=== PATIENT | female | born 1990 | race Caucasian/White ===

== ENCOUNTER 2016-11-05 18:56 | Emergency (ER) | payer SELFPAY ==
[2016-11-05 19:03] VITALS: BP 91/56; PULSE 97; TEMP 98.6; BMI 26.0
--- NOTE | 2016-11-05 19:05 | PDOC ---
Rapid Medical Evaluation Chief Complaint: Pain, Acute Time Seen by Provider: 11/05/16 19:03 Medical Evaluation: Allergies Allergy/AdvReac Type Severity Reaction Status Date / Time No Known Allergies Allergy Verified 11/05/16 19:02 11/05/16 19:03 26 year old female with no medical history who presents complaining of one week of non-traumatic right calf and thigh pain and swelling. No chest pain or SOB. Occasional smoker. No OCP. No known family/personal history of hypercoaguability. V/s notable for HR 99. -Duplex vascular u/s to r/o DVT -Basic labs -Urine -To Main ED for further evaluation
--- NOTE | 2016-11-05 21:10 | PDOC ---
History of Present Illness - General Chief Complaint: Pain, Acute Stated Complaint: LEG PAIN Time Seen by Provider: 11/05/16 19:03 History Source: Patient - History of Present Illness Occurred: reports: other (1 week) Lower Extremity Pain Location: bilateral: leg Past History - Past Medical History Allergies/Adverse Reactions: Allergies Allergy/AdvReac Type Severity Reaction Status Date / Time No Known Allergies Allergy Verified 11/05/16 19:02 Home Medications: Ambulatory Orders Vitamins (Sjr) - 1 tab PO DAILY #1 tablet 02/06/13 Oxycodone HCl/Acetaminophen [Percocet 5-325 mg Tablet -] 1 tab PO Q4H #30 tablet MDD 6 04/24/16 Anemia: No Asthma: No Cancer: No Cardiac Disorders: No CVA: No COPD: No CHF: No Diabetes: No GI Disorders: No Disorders: No HTN: No Hypercholesterolemia: No Liver Disease: No Seizures: No Thyroid Disease: No - Reproductive History (#): 2 Para: 1 - Immunization History Immunization Up to Date: Yes - Psycho/Social/Smoking Cessation Hx Anxiety: No Suicidal Ideation: No Smoking Status: No Smoking History: Never smoked Have you smoked in the past 12 months: No Number of Cigarettes Smoked Daily: 0 Hx Alcohol Use: No Drug/Substance Use Hx: No Substance Use Type: None Hx Substance Use Treatment: No Review of Systems - Review of Systems Constitutional: No: Chills, Fever Respiratory: No: Shortness of Breath Cardiac (ROS): No: Chest Pain, Palpitations *Physical Exam - Vital Signs Last Vital Signs Temp Pulse Resp BP Pulse Ox 98.6 F 97 H 18 91/56 99 11/05/16 19:02 11/05/16 19:02 11/05/16 19:02 11/05/16 19:02 11/05/16 19:02 - Physical Exam General Appearance: Yes: Appropriately Dressed. No: Apparent Distress HEENT: positive: Normal Voice Neck: positive: Supple Respiratory/Chest: negative: Respiratory Distress Extremity: positive: Swelling (minimal swelling to R leg diffusely compared to L , no significant tenderness, no erythema or increased warmth) Integumentary: positive: Dry, Warm Neurologic: positive: Fully Oriented, Alert, Normal Mood/Affect ED Treatment Course - ADDITIONAL ORDERS Additional order review: Laboratory Results 11/05/16 19:20 Urine HCG, Qual Negative - RADIOLOGY Radiology Studies Ordered: Category Date Time Status DUPLEX VASCUL US-2LEGS [US] Stat Ultrasound 11/05/16 21:05 Ordered Medical Decision Making - Medical Decision Making 11/05/16 21:06 26-year-old female, s/p NVSD approximately 6 months ago, here with bilateral lower extremity pain and swelling, R>>L 1 week. States pain in right calf is now radiating up to thigh. No chest pain, shortness of breath or palpitations. Denies any fever or chills. States she had similar symptoms while she was . Denies any trauma. See exam B/l calf pain/swelling Will doppler given recent No CP/sob/palp to suggest PE at this time No signs of infection -Upreg neg at triage -pain control (not nursing) -US 11/05/16 21:53 DVT studies neg. DC w/ pmd f/u in 1 week to rpt DVT studies and to further evaluate 11/05/16 21:54 *DC/Admit/Observation/Transfer Diagnosis at time of Disposition: Leg swelling - Discharge Dispostion Disposition: HOME Condition at time of disposition: Good - Referrals Referrals: Mannie Carias MD [Primary Care Provider] - - Patient Instructions Additional Instructions: The cause of your symptoms are not clear at this time. However, there is no evidence of blood clot under ultrasound. Please follow-up with your PMD in 1 week to repeat DVT studies and for further evaluation
== END 2016-11-05 22:02 | disposition home or self-care (01) ==
LOC: JERFT 18:56
DX: M79.89 Other specified soft tissue disorders (principal)
CPT/HCPCS: 84703; 93970-TC; 99281-25

== ENCOUNTER 2017-10-07 18:15 | Emergency (ER) | payer OTHER ==
[2017-10-07 18:23] VITALS: BP 117/69; PULSE 89; TEMP 98; BMI 23.2
--- NOTE | 2017-10-07 18:23 | PDOC ---
Rapid Medical Evaluation Chief Complaint: Headache Time Seen by Provider: 10/07/17 18:20 Medical Evaluation: Allergies Allergy/AdvReac Type Severity Reaction Status Date / Time No Known Allergies Allergy Verified 10/07/17 18:18 10/07/17 18:21 I have performed a brief in-person evaluation of this patient. The patient presents with a chief complaint of: intermittent frontal ALMANZAR radiating to occiput Pertinent physical exam findings: No focal deficits. I have ordered the following: urine The patient will proceed to the ED for further evaluation. Discharge Disposition - Diagnosis Headache - Referrals - Patient Instructions - Post Discharge Activity
[2017-10-07 19:20] LABS: HCG,QUALITATIVE URINE NEGATIVE
[2017-10-07] MEDS ORDERED: MECLIZINE HCL 25 MG TABLET (FP) PO ONE (19:21)
[2017-10-07] MEDS ORDERED: ONDANSETRON 4 MG/2 ML VIAL IVPUSH ONE (19:21)
[2017-10-07] MEDS ORDERED: SODIUM CHLORIDE 1,000 ML IV STA (19:21)
[2017-10-07] MEDS ORDERED: KETOROLAC TROMETHAMINE 30 MG/1 ML VIAL IVPUSH ONE (19:22)
[2017-10-07 19:27] LABS: URINE APPEARANCE TURBID; URINE BILIRUBIN NEGATIVE (<2.0 mg/dL); URINE COLOR RED; URINE GLUCOSE (UA) 1+ (NEGATIVE); URINE KETONE NEGATIVE (NEGATIVE); URINE LEUK ESTERASE NEGATIVE (NEGATIVE); URINE NITRITE NEGATIVE (NEGATIVE); URINE PROTEIN 2+ (NEGATIVE); URINE UROBILINOGEN NEGATIVE mg/dL (0.2-1.0)
--- NOTE | 2017-10-07 19:30 | PDOC ---
History of Present Illness <Kim Means - Last Filed: 10/07/17 22:51> - History of Present Illness Initial Comments: 10/07/17 19:23 27 yo F with no significant pmh who p/w ALMANZAR and spinning sensation. Patient reports worsening "spinning sensation." states that room is spinning at rest and worse with movement. Symptoms occurring randomly through the day. Also reports pressure type, holocranial distribution ALMANZAR, with retorbital pain, and nausea w/out vomiting x 2 days. + Photophobia, and phonophobia. Denies aura, scintillating scotomas, but reports blurry vision x 1 day. ALMANZAR x 4 months, and worsening. Also endorses acute decreased sensation to cold water and tingling in cervical neck and one episode of dizziness with fall this AM. Denies head/ neck/back trauma. Pain not improved with Tylenol and Ibruprofen. Denies F/C, N/V, tinnitus, hearing loss, CP, SOB, abdominal pain, diarrhea, constipation, urinary complaints, weakness, lightheadedness, sensory changes PMHx: as noted above. Does not f/w Neuro. PMD. Dr. Mannie Johansen. ROS: as noted above SHx: Denies Etoh, tobacco, or IVDA. 1 cup of coffee/day. Denies OCP use. <Vicente Day - Last Filed: 10/07/17 22:53> - General Chief Complaint: Headache Stated Complaint: HEADACHE Time Seen by Provider: 10/07/17 18:20 Past History <Kim Means - Last Filed: 10/07/17 22:51> - Past Medical History Anemia: No Asthma: No Cancer: No Cardiac Disorders: No CVA: No COPD: No CHF: No DVT: No Diabetes: No GI Disorders: No Disorders: No HTN: No Hypercholesterolemia: No Liver Disease: No Seizures: No Thyroid Disease: No - Reproductive History (#): 2 Para: 1 - Immunization History Immunization Up to Date: Yes - Suicide/Smoking/Psychosocial Hx Smoking Status: No Smoking History: Never smoked Have you smoked in the past 12 months: No Number of Cigarettes Smoked Daily: 0 Information on smoking cessation initiated: No Hx Alcohol Use: No Drug/Substance Use Hx: No Substance Use Type: None Hx Substance Use Treatment: No <Vicente Day - Last Filed: 10/07/17 22:53> - Past Medical History Allergies/Adverse Reactions: Allergies Allergy/AdvReac Type Severity Reaction Status Date / Time No Known Allergies Allergy Verified 10/07/17 18:18 Home Medications: Ambulatory Orders Meclizine HCl [Antivert -] 25 mg PO TID PRN #90 tablet MDD 3 tab 10/07/17 Review of Systems - Review of Systems Comments:: 10/07/17 19:30 GENERAL/CONSTITUTIONAL: No fever or chills. No weakness. HEAD, EYES, EARS, NOSE AND THROAT: No change in vision. No ear pain or discharge. No sore throat. CARDIOVASCULAR: No chest pain or shortness of breath RESPIRATORY: No cough, wheezing, or hemoptysis. GASTROINTESTINAL: + nausea,w/out vomiting.No diarrhea or constipation. GENITOURINARY: No dysuria, frequency, or change in urination. MUSCULOSKELETAL: No joint or muscle swelling or pain. No neck or back pain. SKIN: No rash NEUROLOGIC: +headache,and vertigo. No loss of consciousness, or change in strength/sensation. ENDOCRINE: No increased thirst. No abnormal weight change HEMATOLOGIC/LYMPHATIC: No anemia, easy bleeding, or history of blood clots. ALLERGIC/IMMUNOLOGIC: No hives or skin allergy. <Vicente Day - Last Filed: 10/07/17 22:53> *Physical Exam - Vital Signs Last Vital Signs Temp Pulse Resp BP Pulse Ox 98.0 F 89 18 117/69 100 10/07/17 18:19 10/07/17 18:19 10/07/17 18:19 10/07/17 18:19 10/07/17 18:19 <Kim Means - Last Filed: 10/07/17 22:51> - Vital Signs Last Vital Signs Temp Pulse Resp BP Pulse Ox 98.0 F 89 18 117/69 100 10/07/17 18:19 10/07/17 18:19 10/07/17 18:19 10/07/17 18:19 10/07/17 18:19 - Physical Exam Comments: 10/07/17 19:34 GENERAL: Awake, alert, and fully oriented, in no acute distress HEAD: No signs of trauma, normocephalic, atraumatic EYES: PERRLA, EOMI, sclera anicteric, conjunctiva clear ENT: Auricles normal inspection, hearing grossly normal, nares patent, oropharynx clear without exudates. Moist mucosa NECK: Normal ROM, supple, no lymphadenopathy, JVD, or masses LUNGS: No distress, speaks full sentences, clear to auscultation bilaterally HEART: Regular rate and rhythm, normal S1 and S2, no murmurs, rubs or gallops, peripheral pulses normal and equal bilaterally. EXTREMITIES : Normal inspection, Normal range of motion, no edema. No clubbing or cyanosis. NEUROLOGICAL: Absent nystagmus. Cranial nerves II through XII grossly intact. Normal speech, normal gait, no focal sensorimotor deficits SKIN: Warm, Dry, normal turgor, no rashes or lesions noted <Vicente Day - Last Filed: 10/07/17 22:53> ED Treatment Course - LABORATORY CBC & Chemistry Diagram: 10/07/17 19:21 10/07/17 19:21 - ADDITIONAL ORDERS Additional order review: Laboratory Results 10/07/17 10/07/17 19:21 18:55 Sodium 141 Potassium 4.1 Chloride 108 H Carbon Dioxide 29 Anion Gap 4 L BUN 7 Creatinine 1.1 H Creat Clearance w eGFR 59.14 Random Glucose 91 Calcium 8.9 Total Bilirubin 0.3 AST 15 ALT 20 Alkaline Phosphatase 77 Total Protein 7.7 Albumin 4.1 Urine Color Red Urine Appearance Turbid Urine pH 6.0 Ur Specific [place] 1.027 Urine Protein 2+ H Urine Glucose (UA) 1+ H Urine Ketones Negative Urine Blood 3+ H Urine Nitrite Negative Urine Bilirubin Negative Urine Urobilinogen Negative Ur Leukocyte Esterase Negative Urine WBC (Auto) No Result Required. Urine RBC (Auto) >100 Urine HCG, Qual Negative 10/07/17 19:21 RBC 4.74 MCV 80.6 MCHC 33.8 RDW 16.3 H D MPV 8.4 Neutrophils % 47.8 D Lymphocytes % 43.3 H D Monocytes % 7.0 Eosinophils % 1.3 Basophils % 0.6 - Medications Given in the ED: ED Medications Discontinued Medications Generic Name Dose Route Start Last Admin Trade Name Freq PRN Reason Stop Dose Admin Sodium Chloride 1,000 mls @ 1,000 mls/hr 10/07/17 19:21 10/07/17 19:52 Normal Saline - IV 10/07/17 20:20 1,000 mls/hr ASDIR STA Administration Ketorolac Tromethamine 30 mg 10/07/17 19:22 10/07/17 19:52 Toradol Injection - IVPUSH 10/07/17 19:23 30 mg ONCE ONE Administration Meclizine HCl 25 mg 10/07/17 19:21 10/07/17 19:52 Antivert - PO 10/07/17 19:22 25 mg ONCE ONE Administration Ondansetron HCl 4 mg 10/07/17 19:21 10/07/17 19:52 Zofran Injection IVPUSH 10/07/17 19:22 4 mg ONCE ONE Administration <Kim Means - Last Filed: 10/07/17 22:51> - LABORATORY CBC & Chemistry Diagram: 10/07/17 19:21 10/07/17 19:21 - ADDITIONAL ORDERS Additional order review: Laboratory Results 10/07/17 18:55 Urine HCG, Qual Negative <Vicente Day - Last Filed: 10/07/17 22:53> Medical Decision Making - Medical Decision Making 10/07/17 21:04 27 yo F with no significant pmh who p/w holocranial tension type ALMANZAR, with retrobulbar radiation, and vertiginous complaint. VSS, A&Ox3. No focal neuro deficits or risk factors for CVA/TIA. Although patient reports vertigo at rest, there is positional component, absent neuro findings to suggest central etiology. Possible BPPV. ALMANZAR consistent with tension type ALMANZAR vs. migraine w/out aura vs. ophthalmic migraine. Will assess for underlying electrolyte abnml, toxic or metabolic derangements, acid-base disturbances. PMD. Dr. Mannie Carias ED Course: CBC,CMP, HCG UA, U Preg 10/07/17 21:10 CBC,CMP: Unremarkable HCG: Neg UA: 100+ RBC. Patient currently menstruating. 10/07/17 21:27 Patient ALMANZAR and vertigo improved. Meclizine sent to pharmacy. Patient stable for d/c with return precautions. Advised to f/u with ENT and PMD. 10/07/17 22:[address] pending. 10/07/17 22:53 CT Head unremarkable with absent intracranial pathology. <Vicente Day - Last Filed: 10/07/17 22:53> *DC/Admit/Observation/Transfer <Kim Means - Last Filed: 10/07/17 22:51> - Discharge Dispostion Decision to Admit order: No - Attestations Physician Attestion: 10/07/17 21:30 I attest to the information provided in this note. <Vicente Day - Last Filed: 10/07/17 22:53> Diagnosis at time of Disposition: Headache, Vertigo - Discharge Dispostion Disposition: HOME - Prescriptions Prescriptions: Meclizine HCl [Antivert -] 25 mg PO TID PRN #90 tablet MDD 3 tab PRN Reason: Vertigo - Referrals Referrals: John Sawant MD [Staff Physician] - - Patient Instructions Printed Discharge Instructions: DI for Vertigo Additional Instructions: Please return to the emergency department with any new or worsening symptoms or concerns. Please follow up with your primary care physician within 72 hours. Please follow up with ear,nose,throat doctor within 1 week. Please take Meclizine as needed up to three times per day.
[2017-10-07] MEDS ORDERED: KETOROLAC TROMETHAMINE 30 MG/1 ML VIAL ONE (19:40)
[2017-10-07] MEDS ORDERED: MECLIZINE HCL 25 MG TABLET (FP) ONE (19:40)
[2017-10-07] MEDS ORDERED: ONDANSETRON 4 MG/2 ML VIAL ONE (19:40)
[2017-10-07 19:53] LABS: BASO % 0.6 % (0-2.0); EOS % 1.3 % (0-4.5); HEMATOCRIT 38.2 % (32.4-45.2); HEMOGLOBIN 12.9 GM/dL (10.7-15.3); LYMPH % 43.3 % (8-40); MCH 27.3 pg (25.7-33.7); MCHC 33.8 g/dl (32.0-36.0); MEAN CELL VOLUME 80.6 fl (80-96); MEAN PLT VOLUME 8.4 fl (7.5-11.1); NEUT % 47.8 % (42.8-82.8); PLATELET COUNT 263 K/MM3 (134-434); RBC 4.74 M/mm3 (3.60-5.2); RDW 16.3 % (11.6-15.6); WHITE BLOOD COUNT 5.6 K/mm3 (4.0-10.0)
[2017-10-07 20:24] LABS: ALBUMIN 4.1 g/dl (3.4-5.0); ANION GAP 4 (8-16); BILIRUBIN,TOTAL 0.3 mg/dL (0.2-1.0); BLOOD UREA NITROGEN 7 mg/dL (7-18); CALCIUM 8.9 mg/dL (8.5-10.1); CHLORIDE 108 mmol/L (98-107); CO2 29 mmol/L (21-32); CREATININE 1.1 mg/dL (0.55-1.02); GLUCOSE,RANDOM 91 mg/dL (74-106); POTASSIUM 4.1 mmol/L (3.5-5.1); SGOT/AST 15 U/L (15-37); SGPT/ALT 20 U/L (12-78); SODIUM 141 mmol/L (136-145); TOT PROT 7.7 g/dl (6.4-8.2)
[2017-10-07 20:25] LABS: ALK PHOS 77 U/L (45-117)
--- NOTE | 2017-10-07 21:44 | PDOC ---
Attending Attestation - HPI HPI: 10/07/17 21:51 The patient is a 27 year old female with no significant past medical history presents to the emergency department with headache and vertigo. The patient reports vertigo sensation for the past 1 month, which at first was worse with movement but has progressed to spinning sensation even at rest. The patient reports intermittent headaches for the past 4 months. The patient reports new onset of symptoms of blurred vision, nausea, decreased sensation to cold, dizziness and cervical numbness. The patient reports taking Tylenol and Ibuprofen with no relief. The patient reports she is currently menstruating. Patient denies fever, chills, cough. Patient denies chest pain, diaphoresis, palpitations, and shortness of breath. Patient denies vomiting, diarrhea, and constipation. Patient denies dysuria, frequency, urgency, and hematuria. Allergies: NKDA PCP: Dr. Mannie Carias MD Social history: None reported. - Physicial Exam PE: 10/07/17 21:51 GENERAL: AAOX3 Well-appearing, well-nourished. No apparent distress. HEENT: Normocephalic, atraumatic. PERRL, EOM intact. CARDIOVASCULAR: Normal S1, S2. Regular rate and rhythm. PULMONARY: Clear to auscultation bilaterally. ABDOMEN: Soft, non-distended, non-tender. EXTREMITIES: Normal ROM in all four extremities. No gross deformities. SKIN: Warm, dry. No rash NEUROLOGICAL: no motor deficit. No focal neurological deficits. <Christal Conrad - Last Filed: 10/07/17 21:51> - Resident Resident Name: Vicente Day - ED Attending Attestation I have performed the following: I have examined & evaluated the patient, The case was reviewed & discussed with the resident, I agree w/resident's findings & plan, Exceptions are as noted - Medical Decision Making 10/07/17 22:48 27-year-old non female who presents with headache, vertigo. No gross focal neural deficits on exam. CAT scan of the head without contrast is a normal CT of the head with no evidence of acute intracranial pathology plan discharge home <Kim Means - Last Filed: 10/07/17 22:49>
== END 2017-10-07 23:11 | disposition home or self-care (01) ==
LOC: JER 18:15
PROC: 3E0333Z Introduction of Anti-inflammatory into Peripheral Vein, Percutaneous Approach (ICD-10-PCS; principal; 2017-10-07)
PROC: 3E033GC Introduction of Other Therapeutic Substance into Peripheral Vein, Percutaneous Approach (ICD-10-PCS; 2017-10-07)
DX: R51 Headache (principal); R42 Dizziness and giddiness
CPT/HCPCS: 36415; 70450-TC; 80053; 81003; 81015; 84703; 85025; 96374; 96375; 99282-25; J7030

== ENCOUNTER 2017-12-29 13:18 | Emergency (ER) | payer OTHER ==
[2017-12-29 13:25] VITALS: BP 116/64; PULSE 93; TEMP 98.7; BMI 22.6
[2017-12-29] MEDS ORDERED: IBUPROFEN 400 MG TABLET (FP) PO ONE ×2 (13:56→13:58)
--- NOTE | 2017-12-29 14:00 | PDOC ---
History of Present Illness - General Chief Complaint: Pain Stated Complaint: RIGHT ARM PAIN Time Seen by Provider: 12/29/17 13:45 History Source: Patient - History of Present Illness Occurred: reports: just prior to arrival Upper Extremity Pain Location: right: elbow Past History - Past Medical History Allergies/Adverse Reactions: Allergies Allergy/AdvReac Type Severity Reaction Status Date / Time No Known Allergies Allergy Verified 12/29/17 13:25 Home Medications: Ambulatory Orders NK [No Known Home Medication] 12/29/17 Anemia: No Asthma: No Cancer: No Cardiac Disorders: No CVA: No COPD: No CHF: No DVT: No Diabetes: No GI Disorders: No Disorders: No HTN: No Hypercholesterolemia: No Liver Disease: No Seizures: No Thyroid Disease: No - Reproductive History (#): 2 Para: 1 - Immunization History Immunization Up to Date: Yes - Suicide/Smoking/Psychosocial Hx Smoking Status: No Smoking History: Never smoked Have you smoked in the past 12 months: No Number of Cigarettes Smoked Daily: 0 Hx Alcohol Use: No Drug/Substance Use Hx: No Substance Use Type: None Hx Substance Use Treatment: No Review of Systems - Review of Systems Constitutional: No: Chills, Fever Musculoskeletal: Yes: Joint Pain. No: Joint Swelling Integumentary: Yes: Bruising *Physical Exam - Vital Signs Last Vital Signs Temp Pulse Resp BP Pulse Ox 98.7 F 93 H 18 116/64 99 12/29/17 13:22 12/29/17 13:22 12/29/17 13:22 12/29/17 13:22 12/29/17 13:22 - Physical Exam General Appearance: Yes: Appropriately Dressed. No: Apparent Distress HEENT: positive: Normal Voice Neck: positive: Supple Respiratory/Chest: negative: Respiratory Distress Musculoskeletal: positive: Other (contusion to lateral aspect of R elbow, no joint swelling, FROMI) Integumentary: positive: Dry, Warm Neurologic: positive: Fully Oriented, Alert, Normal Mood/Affect Medical Decision Making - Medical Decision Making 12/29/17 13:57 27-year-old female, no significant history, here with bruising to right elbow. Patient states this a.m. while looking for her daughter's toy under the bed she leaned "hard" on her right elbow and has had some pain and bruising since. No fall. Did not take anything for pain for unclear reasons. Patient well- appearing and stable with small area of contusion to lateral aspect of right elbow. No joint swelling, deformity, with full range of motion intact. Will dc with [id number] pain control as needed. *DC/Admit/Observation/Transfer Diagnosis at time of Disposition: Elbow contusion Qualifiers: Encounter type: initial encounter Laterality: right Qualified Code(s): S50.01XA - Contusion of right elbow, initial encounter - Discharge Dispostion Disposition: HOME Condition at time of disposition: Good - Referrals - Patient Instructions Printed Discharge Instructions: Contusion Additional Instructions: You most likely suffered a skin bruise. This will heal on its own in several days. If needed, take Motrin or Tylenol and apply ice to area - Post Discharge Activity
== END 2017-12-29 14:04 | disposition home or self-care (01) ==
LOC: JERFT 13:18
DX: S50.01XA Contusion of right elbow, initial encounter (principal)
CPT/HCPCS: 99281-25

== ENCOUNTER 2018-07-02 18:00 | Emergency (ER) | payer OTHER ==
[2018-07-02 18:28] VITALS: BP 102/47; PULSE 71; TEMP 98.3; BMI 22.6
--- NOTE | 2018-07-02 18:30 | PDOC ---
Rapid Medical Evaluation Chief Complaint: Back Pain Time Seen by Provider: 07/02/18 18:27 Medical Evaluation: Allergies Allergy/AdvReac Type Severity Reaction Status Date / Time No Known Allergies Allergy Verified 07/02/18 18:25 07/02/18 18:27 I have performed a brief in-person evaluation of this patient. The patient presents with a chief complaint of: Intermittent upper and lower back pain x 4 month, getting worse now, not taking any meds or f/u with her PMD Pertinent physical exam findings:unremarkable, NAD I have ordered the following:nothing The patient will proceed to the ED for further evaluation. Discharge Disposition - Diagnosis Back pain Qualifiers: Back pain location: back pain in unspecified location Chronicity: unspecified Back pain laterality: unspecified Qualified Code(s): M54.9 - Dorsalgia, unspecified - Referrals - Patient Instructions - Post Discharge Activity
--- NOTE | 2018-07-02 19:15 | PDOC ---
History of Present Illness - General Chief Complaint: Back Pain Stated Complaint: BACK PAIN Time Seen by Provider: 07/02/18 18:27 History Source: Patient Exam Limitations: Clinical Condition - History of Present Illness Initial Comments: 07/02/18 19:09 Patient with no significant past medical history present with complaining of 4 months history of tightness and aching pain from back of neck to lower back. Patient reports using topical patch to help with pain but has not improved. Patient reports increased pain with movement when getting up from laying position or sitting position. Patient denies any trauma or injury to lower back. Patient also reported numbness in her menstrual period with LMP May 23. Denies nausea, vomiting or vaginal bleeding. Denies abdominal pain Timing/Duration: other (4 months) Past History - Past Medical History Allergies/Adverse Reactions: Allergies Allergy/AdvReac Type Severity Reaction Status Date / Time No Known Allergies Allergy Verified 07/02/18 18:25 Home Medications: Ambulatory Orders Methocarbamol [Robaxin -] 500 mg PO BID PRN #14 tablet 07/02/18 Naproxen 500 mg PO BID PRN #20 tablet 07/02/18 Anemia: No Asthma: No Cancer: No Cardiac Disorders: No CVA: No COPD: No CHF: No DVT: No Diabetes: No GI Disorders: No Disorders: No HTN: No Hypercholesterolemia: No Liver Disease: No Seizures: No Thyroid Disease: No - Reproductive History (#): 2 Para: 1 - Immunization History Immunization Up to Date: Yes - Suicide/Smoking/Psychosocial Hx Smoking Status: No Smoking History: Never smoked Have you smoked in the past 12 months: No Number of Cigarettes Smoked Daily: 0 Hx Alcohol Use: No Drug/Substance Use Hx: No Substance Use Type: None Hx Substance Use Treatment: No Review of Systems - Review of Systems Able to Perform ROS?: Yes Is the patient limited Faroese proficient: No Constitutional: No: Weakness HEENTM: No: Recent change in vision, Double Vision Respiratory: No: Symptoms reported Cardiac (ROS): No: Symptoms Reported ABD/GI: No: Diarrhea, Nausea, Vomiting, Abdominal cramping : No: Frequency, Hematuria, Pain, Urgency Musculoskeletal: Yes: See HPI, Back Pain (b/l lower back), Muscle Pain (from b/ l sides of back of neck to lower back), Neck Pain (back of neck aching pain). No: Joint Stiffness Neurological: No: Headache, Numbness, Paresthesia, Weakness, Dizziness All Other Systems: Reviewed and Negative *Physical Exam - Vital Signs Last Vital Signs Temp Pulse Resp BP Pulse Ox 98.3 F 71 18 102/47 L 99 07/02/18 18:26 07/02/18 18:26 07/02/18 18:26 07/02/18 18:26 07/02/18 18:26 - Physical Exam Comments: 07/02/18 19:12 GENERAL: Well developed, well nourished. Awake and alert. No acute distress. CARDIOVASCULAR: Regular rate and rhythm. No murmurs, rubs, or gallops. PULMONARY: No evidence of respiratory distress. Lungs clear to auscultation bilaterally. No wheezing, rales or rhonchi. ABDOMINAL: Soft. Non-tender. Non-distended. No rebound or guarding. No organomegaly. Normoactive bowel sounds MUSCULOSKELETAL : mild tenderness over posterior paravertebral muscle from cervical spine or C2 down to lumbar spine L5 on bilateral sides. Free range of motion of neck and lower back. No bony deformities .negative straight leg raise test. SKIN: Warm and dry. Normal capillary refill. No rashes. NEUROLOGICAL: Alert, awake, appropriate. No motor deficits in the lower extremities. Gait is normal without ataxia. PSYCHIATRIC: Cooperative. Good eye contact. Appropriate mood and affect. General Appearance: Yes: Nourished, Appropriately Dressed. No: Apparent Distress Moderate Sedation - Procedure Monitoring Vital Signs: Procedure Monitoring Vital Signs Temperature 98.3 F 07/02/18 18:26 Pulse Rate 71 07/02/18 18:26 Respiratory Rate 18 07/02/18 18:26 Blood Pressure 102/47 L 07/02/18 18:26 O2 Sat by Pulse Oximetry (%) 99 07/02/18 18:26 Medical Decision Making - Medical Decision Making 07/02/18 19:15 Patient with no significant past medical history present with complaining of 4 months history of tightness and aching pain from back of neck to lower back. Patient reports using topical patch to help with pain but has not improved. Patient reports increased pain with movement when getting up from laying position or sitting position. Patient denies any trauma or injury to lower back. Patient also reported numbness in her menstrual period with LMP May 23. Denies nausea, vomiting or vaginal bleeding. Denies abdominal pain. Exam significant for mild tenderness over posterior paravertebral muscle from cervical spine or C2 down to lumbar spine L5 on bilateral sides. Free range of motion of neck and lower back. No bony deformities .negative straight leg raise test. Symptoms likely muscle spasm of the neck and back. Urine test ordered. Patient will be treated based on test result 07/02/18 19:33 Urine test negative. Patient is stable for discharge on NSAIDs and muscle relaxer with orthopedist follow-up as needed. Patient advised to follow up with SCIENTIFIC SOFTWARE ENGINEER to evaluate for late menstrual period. *DC/Admit/Observation/Transfer Diagnosis at time of Disposition: test negative, Back muscle spasm Back pain Qualifiers: Back pain location: back pain in unspecified location Chronicity: unspecified Back pain laterality: unspecified Qualified Code(s): M54.9 - Dorsalgia, unspecified - Discharge Dispostion Disposition: HOME Condition at time of disposition: Stable Decision to Admit order: No - Prescriptions Prescriptions: Methocarbamol [Robaxin -] 500 mg PO BID PRN #14 tablet PRN Reason: Back Pain Naproxen 500 mg PO BID PRN #20 tablet PRN Reason: Back Pain - Referrals Referrals: Darrion Cline DO [Staff Physician] - - Patient Instructions Printed Discharge Instructions: DI for Low Back Pain, Exercise May Reduce Risk of Low Back Pain Additional Instructions: Your urine test was negative. symptoms likely muscle spasm. Take medication as prescribed as needed for back pain. Apply heat to lower back 2-3 times a day for 5-10 minutes as needed for pain. Follow-up referred to orthopedics if symptoms are not improving 4 days. Follow-up with SCIENTIFIC SOFTWARE ENGINEER to evaluate for late menstrual period. - Post Discharge Activity
== END 2018-07-02 19:37 | disposition home or self-care (01) ==
LOC: JERFT 18:00
DX: M62.830 Muscle spasm of back (principal)
CPT/HCPCS: 84703; 99281-25

== ENCOUNTER 2018-08-29 21:17 | Emergency (ER) | payer OTHER ==
--- NOTE | 2018-08-29 21:40 | PDOC ---
Rapid Medical Evaluation Chief Complaint: Nausea/Vomiting Medical Evaluation: Allergies Allergy/AdvReac Type Severity Reaction Status Date / Time No Known Allergies Allergy Verified 07/02/18 18:25 08/29/18 21:37 I have performed a brief in-person evaluation of this patient. The patient presents with a chief complaint of: yesterday onset opf N/V/D x 10 today- son ill with same Pertinent physical exam findings: pale, abd soft I have ordered the following: Ucg /UA The patient will proceed to the ED for further evaluation. Discharge Disposition - Diagnosis N&V (nausea and vomiting) - Referrals - Patient Instructions - Post Discharge Activity
[2018-08-29 21:43] VITALS: BP 118/61; PULSE 94; TEMP 98.2; BMI 28.3
--- NOTE | 2018-08-29 22:00 | PDOC ---
History of Present Illness - General Chief Complaint: Nausea/Vomiting Stated Complaint: FEVER DIARRHEA Time Seen by Provider: 08/29/18 21:55 History Source: Patient - History of Present Illness Timing/Duration: reports: other (yesterday') Past History - Past Medical History Allergies/Adverse Reactions: Allergies Allergy/AdvReac Type Severity Reaction Status Date / Time No Known Allergies Allergy Verified 08/29/18 21:41 Home Medications: Ambulatory Orders Methocarbamol [Robaxin -] 500 mg PO BID PRN #14 tablet 07/02/18 Naproxen 500 mg PO BID PRN #20 tablet 07/02/18 Ondansetron HCl [Zofran] 4 mg PO Q8H #8 tablet 08/29/18 Anemia: No Asthma: No Cancer: No Cardiac Disorders: No CVA: No COPD: No CHF: No DVT: No Diabetes: No GI Disorders: No Disorders: No HTN: No Hypercholesterolemia: No Liver Disease: No Seizures: No Thyroid Disease: No - Reproductive History (#): 2 Para: 1 - Immunization History Immunization Up to Date: Yes - Suicide/Smoking/Psychosocial Hx Smoking Status: No Smoking History: Never smoked Have you smoked in the past 12 months: No Number of Cigarettes Smoked Daily: 0 Hx Alcohol Use: No Drug/Substance Use Hx: No Substance Use Type: None Hx Substance Use Treatment: No Review of Systems - Review of Systems Constitutional: No: Chills, Fever, Weakness ABD/GI: Yes: Diarrhea, Nausea, Vomiting. No: Abdominal cramping *Physical Exam - Vital Signs Last Vital Signs Temp Pulse Resp BP Pulse Ox 98.2 F 94 H 20 118/61 98 08/29/18 21:39 08/29/18 21:39 08/29/18 21:39 08/29/18 21:39 08/29/18 21:39 - Physical Exam General Appearance: Yes: Appropriately Dressed. No: Apparent Distress HEENT: positive: Normal Voice Neck: positive: Supple Respiratory/Chest: negative: Respiratory Distress Gastrointestinal/Abdominal: positive: Soft. negative: Tender Integumentary: positive: Dry, Warm Neurologic: positive: Fully Oriented, Alert, Normal Mood/Affect Medical Decision Making - Medical Decision Making 08/29/18 21:58 28-year-old female, denies any past medical history, here with nausea, vomiting and diarrhea since yesterday. Patient states she's had about 10 episodes of non -bloody watery stools w/ 1-2 episodes of nausea, vomiting. No abdominal pain, fever or chills. Son with similar symptoms. No recent travel or antibiotic use See exam M/l gastroenteritis, unlikely appy as benign abd Son with same No RF for serious dysentery Well nasima and stable w/ benign abd -dc w/ supportive tx *DC/Admit/Observation/Transfer Diagnosis at time of Disposition: N&V (nausea and vomiting) Qualifiers: Vomiting type: unspecified Vomiting Intractability: non-intractable Qualified Code(s): R11.2 - Nausea with vomiting, unspecified Diarrhea Qualifiers: Diarrhea type: unspecified type Qualified Code(s): R19.7 - Diarrhea, unspecified - Discharge Dispostion Disposition: HOME Condition at time of disposition: Good - Prescriptions Prescriptions: Ondansetron HCl [Zofran] 4 mg PO Q8H #8 tablet - Referrals - Patient Instructions Printed Discharge Instructions: Viral Gastroenteritis Additional Instructions: You most likely have a viral illness. Rest and plenty of fluids and take Zofran as needed for nausea, vomiting. If symptoms worsen, please return to the ED as discussed - Post Discharge Activity
[2018-08-29 22:09] LABS: HCG,QUALITATIVE URINE Negative; URINE APPEARANCE CLEAR; URINE BILIRUBIN NEGATIVE (NEGATIVE); URINE COLOR DK YELLOW; URINE GLUCOSE (UA) NEGATIVE (NEGATIVE); URINE KETONE TRACE (NEGATIVE); URINE LEUK ESTERASE NEGATIVE (NEGATIVE); URINE NITRITE NEGATIVE (NEGATIVE); URINE PROTEIN NEGATIVE (NEGATIVE)
== END 2018-08-29 22:34 | disposition home or self-care (01) ==
LOC: JERFT 21:17 → JER 21:17 → JERFT 22:34
DX: K52.9 Noninfective gastroenteritis and colitis, unspecified (principal)
CPT/HCPCS: 81003; 84703; 99281-25

== ENCOUNTER 2018-10-16 10:06 | Emergency (ER) | payer OTHER ==
[2018-10-16 10:14] VITALS: BP 99/70; PULSE 84; TEMP 98; BMI 22.3
[2018-10-16] MEDS ORDERED: NAPROXEN 500 MG TABLET (FP) PO ONE (11:17)
[2018-10-16] MEDS ORDERED: NAPROXEN 500 MG TABLET (FP) ONE (11:25)
--- NOTE | 2018-10-16 11:25 | PDOC ---
History of Present Illness - General Chief Complaint: Head/Neck problem Stated Complaint: NECK PAIN Time Seen by Provider: 10/16/18 10:56 History Source: Patient Exam Limitations: No Limitations - History of Present Illness Initial Comments: 10/16/18 11:20 HISTORY OF PRESENT ILLNESS: 28-year-old woman with denies medical history presents emergency department for evaluation of right-sided neck and shoulder pain which has been intermittent over the past one year. Patient reports the most recent episode is been consistent and constant over the past 2 weeks. Patient has been taking intermittent Tylenol doses which is had minimal relief of pain. Patient reports the pain as a cold sensation with pins and needles to the right lateral neck, right shoulder and into the right upper extremity. Patient denies any weakness or loss of sensation. No recent travel or sick contacts. PAST MEDICAL HISTORY: Denies past medical history SURGICAL HISTORY: Denies ALLERGIES: No known drug allergies REVIEW OF SYSTEMS General/Constitutional: Denies fever or chills. Denies weakness, weight change. HEENT: Denies change in vision. Denies ear pain or discharge. Denies sore throat. Cardiovascular: Denies chest pain or shortness of breath. Respiratory: Denies cough, wheezing, or hemoptysis. Gastrointestinal: Denies nausea, vomiting, diarrhea or constipation. Denies rectal bleeding. Genitourinary: Denies dysuria, frequency, or change in urination. Musculoskeletal: see HPI Skin and breasts: Denies rash or easy bruising. Neurologic: Denies headache, vertigo, loss of consciousness, or loss of sensation. Psychiatric: Denies depression or anxiety. Endocrine: Denies increased thirst. Denies abnormal weight change. Hematologic/Lymphatic: Denies anemia, easy bleeding, or history of blood clots. Allergic/Immunologic: Denies hives or skin allergy. Denies latex allergy. PHYSICAL EXAM General Appearance: Well-appearing, appropriately dressed. No apparent distress , no intoxication. HEENT: EOMI, PERRLA, normal ENT inspection, normal voice, TMs normal, pharynx normal. No conjunctival pallor. No photophobia, scleral icterus. Neck: Supple. Trachea midline. No tenderness, rigidity, carotid bruit, stridor , lymphadenopathy, or thyromegaly. Respiratory/Chest: Lungs CTAB. No shortness of breath, chest tenderness, respiratory distress, accessory muscle use. No crackles, rales, rhonchi, stridor , wheezing, dullness Cardiovascular: RRR. S1, S2. No JVD, murmur, bradycardia, tachycardia. Vascular Pulses: radial (R): 2+, radial (L): 2+ Gastrointestinal/Abdominal: Normal bowel sounds. Abdomen soft, non-distended. No tenderness or rebound tenderness. No organomegaly, pulsatile mass, guarding, hernia, hepatomegaly, splenomegaly. Musculoskeletal/Extremities: Normal inspection. FROM of all extremities, normal capillary refill. Pelvis Stable. No CVA tenderness. No tenderness to extremities, pedal edema, swelling, erythema or deformity. Palpable muscle spasm present to the trapezius on the right to the insertion point at the cervical spine. Full active range of motion present. Attending Radiologist strength 5/5 bilaterally. Neurovascular intact. 10/16/18 11:27 Past History - Past Medical History Allergies/Adverse Reactions: Allergies Allergy/AdvReac Type Severity Reaction Status Date / Time No Known Allergies Allergy Verified 08/29/18 21:41 Home Medications: Ambulatory Orders Methocarbamol 1,500 mg PO TID #42 tablet 10/16/18 Anemia: No Asthma: No Cancer: No Cardiac Disorders: No CVA: No COPD: No CHF: No DVT: No Diabetes: No GI Disorders: No Disorders: No HTN: No Hypercholesterolemia: No Liver Disease: No Seizures: No Thyroid Disease: No - Reproductive History (#): 2 Para: 1 - Immunization History Immunization Up to Date: No - Suicide/Smoking/Psychosocial Hx Smoking Status: No Smoking History: Current every day smoker Have you smoked in the past 12 months: No Number of Cigarettes Smoked Daily: 1 Information on smoking cessation initiated: No Hx Alcohol Use: No Drug/Substance Use Hx: No Substance Use Type: None Hx Substance Use Treatment: No *Physical Exam - Vital Signs Last Vital Signs Temp Pulse Resp BP Pulse Ox 98 F 84 18 99/70 100 10/16/18 10:08 10/16/18 10:08 10/16/18 10:08 10/16/18 10:08 10/16/18 10:08 Medical Decision Making - Medical Decision Making 10/16/18 11:25 A/P: 28-year-old female with right-sided neck pain radiating to the right upper extremity Palpable muscle spasm present in the trapezius muscle at the insertion site at the cervical spine Full sensation present to bilateral upper extremities Full range of motion noted Attending Radiologist strength 5/5 bilaterally Radial pulses 2+ bilaterally Naprosyn 500 mg orally now Discharge home with prescription for Robaxin and follow-up with primary doctor. Patient reports she doesn't have a primary doctor. As patient has a primary language of Divehi, I will give her Dr. Knight as a PMD. I discussed the physical exam findings, ancillary test results and final diagnoses with the patient. I answered all of the patient's questions. The patient was satisfied with the care received and felt comfortable with the discharge plan and treatment plan. The patient will call their primary care physician within 24 hours to arrange follow-up and will return to the Emergency Department with any new, persistent or worsening symptoms. *DC/Admit/Observation/Transfer Diagnosis at time of Disposition: Muscle spasm of right shoulder - Discharge Dispostion Disposition: HOME Condition at time of disposition: Stable Decision to Admit order: No - Prescriptions Prescriptions: Methocarbamol 1,500 mg PO TID #42 tablet - Referrals Referrals: ON STAFF,NOT [Primary Care Provider] - Juan Alberto Knight MD [Staff Physician] - - Patient Instructions Additional Instructions: Rest, no heavy lifting or exercise until pain is resolved Hot soaks to neck and low back as often as possible/hot showers or Jacuzzis No massage or therapy until spasm is gone Continue Naprosyn 2-220 mg tablets every 12 hours for the next 3 days then as needed for pain and swelling Robaxin 1500mg every 8 hours as needed for spasm If not significant improvement within 24 hours with medication and rest regime, followup with private physician for change in medications and /or therapy. - Post Discharge Activity
== END 2018-10-16 11:41 | disposition home or self-care (01) ==
LOC: JERFT 10:06
DX: M62.838 Other muscle spasm (principal)
CPT/HCPCS: 99281-25

== ENCOUNTER 2019-06-25 14:43 | Emergency (ER) | payer OTHER ==
--- NOTE | 2019-06-25 14:57 | PDOC ---
Rapid Medical Evaluation Time Seen by Provider: 06/25/19 14:55 Medical Evaluation: Allergies Allergy/AdvReac Type Severity Reaction Status Date / Time No Known Allergies Allergy Verified 08/29/18 21:41 06/25/19 14:55 CC: hematuria Pt is a 29 y/o female who presents to the ED with hematuria since this morning. She is complaining of lower abdominal pain. Brief exam: + lower abdominal tenderness to palpation, no CVA tenderness b/l Orders: ua, urine HCG, cbc, cmp ordered To ED for further evaluation Discharge Disposition - Diagnosis Hematuria - Referrals - Patient Instructions - Post Discharge Activity
[2019-06-25 15:00] VITALS: BP 102/66; PULSE 89; TEMP 98.1; BMI 22.8
[2019-06-25 16:02] LABS: BASO % 0.6 % (0-2.0); EOS % 0.4 % (0-4.5); HEMATOCRIT 36.4 % (32.4-45.2); HEMOGLOBIN 12.3 GM/dL (10.7-15.3); LYMPH % 13.9 % (8-40); MCH 26.9 pg (25.7-33.7); MCHC 33.7 g/dl (32.0-36.0); MEAN CELL VOLUME 79.9 fl (80-96); MONO % 4.4 % (3.8-10.2); NEUT % 80.7 % (42.8-82.8); PLATELET COUNT 179 K/MM3 (134-434); RBC 4.56 M/mm3 (3.60-5.2); RDW 14.6 % (11.6-15.6)
[2019-06-25 16:26] LABS: ALBUMIN 4.1 g/dl (3.4-5.0); BILIRUBIN,TOTAL 0.4 mg/dL (0.2-1); CREATININE 0.7 mg/dL (0.55-1.3); TOT PROT 7.3 g/dl (6.4-8.2)
--- NOTE | 2019-06-25 16:34 | PDOC ---
History of Present Illness - General Chief Complaint: Hematuria Stated Complaint: HEMATUIRA Time Seen by Provider: 06/25/19 14:55 History Source: Patient - History of Present Illness Initial Comments: 06/25/19 16:31 Chief complaint: Hematuria Patient is a healthy 29-year-old female, G3, P3 who has 1 day of dysuria and hematuria. Denies fever but states she feels chills and she has pain and pressure in her pelvis, radiating upward when she pees. No nausea or vomiting. Patient denies any vaginal complaints. GENERAL/CONSTITUTIONAL: No fever, weakness. dizziness HEAD, EYES, EARS, NOSE AND THROAT: No change in vision. No ear pain or discharge. No sore throat. CARDIOVASCULAR: No chest pain RESPIRATORY: No shortness of breath or cough GASTROINTESTINAL: No pain, nausea, vomiting, diarrhea or constipation GENITOURINARY: +dysuria, + pain, hematuria MUSCULOSKELETAL: No neck or back pain SKIN: No rash NEUROLOGIC: No headache, vertigo, loss of consciousness, or loss of sensation. GENERAL: The patient is awake, alert, and fully oriented, in no acute distress. HEAD: Normal with no signs of trauma. EYES: Pupils equal, round and reactive to light, sclera anicteric, conjunctiva clear. ENT: pharynx: no erythema, no exudate, uvula midline NECK: supple CHEST: clear, nontender, rr ABD: soft, with mostly pelvic pain, some upper abdominal tenderness, no guarding BACK: no tenderness or signs of injury EXTREMITIES: Normal range of motion, no edema. NEUROLOGICAL: Normal speech, normal gait. SKIN: Warm, Dry Past History - Past Medical History Allergies/Adverse Reactions: Allergies Allergy/AdvReac Type Severity Reaction Status Date / Time No Known Allergies Allergy Verified 08/29/18 21:41 Home Medications: Ambulatory Orders Methocarbamol 1,500 mg PO TID #42 tablet 10/16/18 Cefpodoxime Proxetil [Vantin -] 200 mg PO Q12H #14 tablet 06/25/19 Phenazopyridine HCl [Pyridium] 200 mg PO TID #5 tablet 06/25/19 Anemia: No Asthma: No Cancer: No Cardiac Disorders: No CVA: No COPD: No CHF: No DVT: No Diabetes: No GI Disorders: No Disorders: No HTN: No Hypercholesterolemia: No Liver Disease: No Seizures: No Thyroid Disease: No - Reproductive History (#): 2 Para: 1 - Immunization History Immunization Up to Date: No - Psycho Social/Smoking Cessation Hx Smoking Status: No Smoking History: Current every day smoker Have you smoked in the past 12 months: Yes Number of Cigarettes Smoked Daily: 3 Information on smoking cessation initiated: No Hx Alcohol Use: No Drug/Substance Use Hx: No Substance Use Type: None Hx Substance Use Treatment: No *Physical Exam - Vital Signs Last Vital Signs Temp Pulse Resp BP Pulse Ox 98.1 F 89 19 102/66 100 06/25/19 14:56 06/25/19 14:56 06/25/19 14:56 06/25/19 14:56 06/25/19 14:56 ED Treatment Course - LABORATORY CBC & Chemistry Diagram: 06/25/19 13:52 06/25/19 13:52 - ADDITIONAL ORDERS Additional order review: Laboratory Results 06/25/19 06/25/19 13:52 13:52 Sodium 144 Potassium 4.0 Chloride 109 H Carbon Dioxide 28 Anion Gap 6 L BUN 9.0 Creatinine 0.7 Est GFR (CKD-EPI)AfAm 134.75 Est GFR (CKD-EPI)NonAf 116.26 Random Glucose 95 Calcium 9.0 Total Bilirubin 0.4 AST 18 ALT 34 Alkaline Phosphatase 58 Total Protein 7.3 Albumin 4.1 Urine HCG, Qual Negative 06/25/19 13:52 RBC 4.56 MCV 79.9 L MCHC 33.7 RDW 14.6 D MPV 9.0 Neutrophils % 80.7 D Lymphocytes % 13.9 D Monocytes % 4.4 Eosinophils % 0.4 Basophils % 0.6 - RADIOLOGY Radiology Studies Ordered: Category Date Time Status KIDNEY / RENAL US [US] Stat Ultrasound 06/25/19 15:29 Ordered TRANSVAGINAL ULTRASOUND US [US] Stat Ultrasound 06/25/19 15:29 Ordered Medical Decision Making - Medical Decision Making 06/25/19 16:33 29-year-old female with no significant medical problems, with last normal period in May, middle of the month with 1 day of dysuria, hematuria, chills. Patient does not have clinical signs of pyelonephritis. Patient has some pelvic tenderness. Will get basic labs, , UA, ultrasounds of the ovaries and kidneys and reassess. 06/25/19 18:05 Patient is not , labs are stable, patient has UTI, likely cystitis. Ultrasound shows likely fibroid, renal ultrasound is normal and ovaries show no acute issue. There is no indication for CT scanning, patient does not have clinically signs of renal colic and is nonfebrile. Will give 1 dose of Rocephin IV and send patient home on Vantin given significant UTI and chills Discussed issues, findings, results, applicable medications and treatments and follow-up. All these were understood and all questions were answered Discharge - Discharge Information Problems reviewed: Yes Clinical Impression/Diagnosis: Hematuria Qualifiers: Hematuria type: unspecified type Qualified Code(s): R31.9 - Hematuria, unspecified Urinary tract infection Qualifiers: Urinary tract infection type: acute cystitis Hematuria presence: with hematuria Qualified Code(s): N30.01 - Acute cystitis with hematuria Condition: Stable Disposition: HOME - Admission No - Additional Discharge Information Prescriptions: Cefpodoxime Proxetil [Vantin -] 200 mg PO Q12H #14 tablet Phenazopyridine HCl [Pyridium] 200 mg PO TID #5 tablet - Follow up/Referral Referrals: Juan Alberto Knight MD [Primary Care Provider] - - Patient Discharge Instructions Patient Printed Discharge Instructions: DI for Urinary Tract Infection (UTI) Additional Instructions: Drink 2-3 L of water daily Take the Vantin twice a day for 7 days take Acidophilus to help prevent yeast infection or stomach upset You can take Motrin 600 mg every 6 hours for pain Return ER if fever, vomiting, feeling sicker Follow-up with your doctor in 2-3 days Make sure you follow-up with your FLANGING OPERATOR regarding the fibroid findings and to make sure that there are no other tests that need to be done to make sure this is a fibroid and not something more serious like cancer - Post Discharge Activity
[2019-06-25 16:59] LABS: URINE APPEARANCE TURBID; URINE BILIRUBIN SMALL (NEGATIVE); URINE COLOR RED; URINE GLUCOSE (UA) NEGATIVE (NEGATIVE); URINE KETONE NEGATIVE (NEGATIVE); URINE PROTEIN 100 (NEGATIVE); URINE UROBILINOGEN 0.2 mg/dL (0.2-1.0)
[2019-06-25 17:00] LABS: URINE LEUK ESTERASE LARGE (NEGATIVE); URINE NITRITE POSITIVE (NEGATIVE)
[2019-06-25 17:05] LABS: URINE RBC 1947.8 /hpf (0-4); URINE WBC 182.8 /hpf (0-5)
[2019-06-25 17:06] LABS: EPI CELLS 3.2 /HPF (0-5/HPF); HYALINE CASTS 197.42 /lpf (0-8); URINE BACTERIA 4459.6 /hpf (NEGATIVE)
[2019-06-25] MEDS ORDERED: KETOROLAC TROMETHAMINE 30 MG/1 ML VIAL IVPUSH ONE (17:36)
[2019-06-25] MEDS ORDERED: PHENAZOPYRIDINE HCL 100 MG TABLET (FP) PO ONE (17:37)
[2019-06-25] MEDS ORDERED: PHENAZOPYRIDINE HCL 100 MG TABLET (FP) ONE (17:43)
[2019-06-25] MEDS ORDERED: KETOROLAC TROMETHAMINE 30 MG/1 ML VIAL ONE (17:43)
[2019-06-25] MEDS ORDERED: CEFTRIAXONE 1,000 MG in DEXTROSE 5%-WATER - 50 ML IVPB ONE (18:04)
[2019-06-25] MEDS ORDERED: CEFTRIAXONE 1 GM/50 ML BAG ONE (18:07)
[2019-06-25] MEDS ORDERED: ONDANSETRON 4 MG/2 ML VIAL IVPUSH ONE (18:27)
[2019-06-25] MEDS ORDERED: ONDANSETRON 4 MG/2 ML VIAL ONE (18:29)
== END 2019-06-25 18:36 | disposition home or self-care (01) ==
LOC: JERFT 14:43
PROC: 3E03329 Introduction of Other Anti-infective into Peripheral Vein, Percutaneous Approach (ICD-10-PCS; principal; 2019-06-25)
PROC: 3E033GC Introduction of Other Therapeutic Substance into Peripheral Vein, Percutaneous Approach (ICD-10-PCS; 2019-06-25)
PROC: 3E0333Z Introduction of Anti-inflammatory into Peripheral Vein, Percutaneous Approach (ICD-10-PCS; 2019-06-25)
DX: N30.01 Acute cystitis with hematuria (principal)
CPT/HCPCS: 36415; 76775-TC; 76830-TC; 80053; 81003; 84703; 85025; 87086; 87186; 99283-25

== ENCOUNTER 2020-12-17 10:38 | Emergency (ER) | payer OTHER ==
[2020-12-17 10:46] VITALS: BP 102/60; PULSE 89; TEMP 98.4; BMI 24.4
== END 2020-12-17 12:38 | disposition home or self-care (01) ==
LOC: JER 10:38 → JERFT 10:38
DX: J06.9 Acute upper respiratory infection, unspecified (principal)
CPT/HCPCS: 84703; 87804; 87880; 99283-25; C9803; U0003; U0005

== ENCOUNTER 2021-08-07 13:10 | Emergency (ER) | payer OTHER ==
[2021-08-07 13:17] VITALS: BP 97/70; PULSE 71; TEMP 98.6; BMI 23.8
[2021-08-07 13:44] LABS: EPITHELIAL CELLS MODERATE /hpf
[2021-08-07] MEDS ORDERED: SULFAMETHOXAZOLE/TRIMETHOPRIM 800MG/160MG D.S. TABLET PO ONE (14:06)
[2021-08-07] MEDS ORDERED: SULFAMETHOXAZOLE/TRIMETHOPRIM 800MG/160MG D.S. TABLET ONE (14:17)
== END 2021-08-07 16:45 | disposition home or self-care (01) ==
LOC: FER 13:10
DX: N12 Tubulo-interstitial nephritis, not specified as acute or chronic (principal); N39.0 Urinary tract infection, site not specified; D25.9 Leiomyoma of uterus, unspecified; N83.209 Unspecified ovarian cyst, unspecified side
CPT/HCPCS: 76830-TC; 81003; 81015; 84703; 87086; 99284-25

== ENCOUNTER 2021-08-14 10:15 | Emergency (ER) | payer OTHER ==
[2021-08-14 10:46] VITALS: BP 100/58; BMI 23.8
[2021-08-14] MEDS ORDERED: MECLIZINE HCL 25 MG TABLET (FP) PO ONE (11:00)
[2021-08-14] MEDS ORDERED: LACTATED RINGERS SOLUTION 1000 ML INFUS.BAG IV ONE (11:00)
[2021-08-14] MEDS ORDERED: ONDANSETRON 4 MG/2 ML VIAL IVPUSH ONE (11:00)
[2021-08-14] MEDS ORDERED: ONDANSETRON 4 MG/2 ML VIAL ONE (11:10)
[2021-08-14] MEDS ORDERED: MECLIZINE HCL 25 MG TABLET (FP) ONE (11:11)
[2021-08-14 11:37] VITALS: PULSE 97; TEMP 99.1
[2021-08-14 12:47] LABS: BASO % 0.1 % (0-2.0); HEMATOCRIT 34.8 % (32.4-45.2); HEMOGLOBIN 12.2 GM/dL (10.7-15.3); LYMPH % 12.2 % (8-40); MCH 28.4 pg (25.7-33.7); MEAN CELL VOLUME 81.3 fl (80-96); MEAN PLT VOLUME 8.4 fl (7.5-11.1); MONO % 8.5 % (3.8-10.2); NEUT % 73.2 % (42.8-82.8); PLATELET COUNT 142 10^3/uL (134-434); RBC 4.29 M/mm3 (3.60-5.2); RDW 15.8 % (11.6-15.6); WHITE BLOOD COUNT 2.6 K/mm3 (4.0-10.0)
[2021-08-14 12:49] LABS: CALCIUM 8.4 mg/dL (8.5-10.1)
[2021-08-14 12:50] LABS: BLOOD UREA NITROGEN 6.8 mg/dL (7-18)
[2021-08-14 12:51] LABS: ALBUMIN 3.5 g/dl (3.4-5.0)
[2021-08-14 12:54] LABS: CREATININE 0.8 mg/dL (0.55-1.3)
[2021-08-14 12:55] LABS: BILIRUBIN,TOTAL 0.3 mg/dL (0.2-1); TOT PROT 6.6 g/dl (6.4-8.2)
[2021-08-14] MEDS ORDERED: ACETAMINOPHEN 1000 MG/100 ML BAG IVPB ONE (13:37)
[2021-08-14] MEDS ORDERED: ACETAMINOPHEN INJECTION 100 ML IVPB ONE (13:39)
[2021-08-14] MEDS ORDERED: KETOROLAC TROMETHAMINE 15 MG/ML VIAL IVPUSH ONE (14:44)
[2021-08-14] MEDS ORDERED: diazePAM 5 MG TABLET PO ONE (14:44)
[2021-08-14] MEDS ORDERED: KETOROLAC TROMETHAMINE 15 MG/ML VIAL ONE (15:39)
[2021-08-14] MEDS ORDERED: diazePAM 5 MG TABLET ONE (15:40)
== END 2021-08-14 16:53 | disposition home or self-care (01) ==
LOC: FER 10:15
PROC: 3E033GC Introduction of Other Therapeutic Substance into Peripheral Vein, Percutaneous Approach (ICD-10-PCS; principal; 2021-08-14)
DX: R42 Dizziness and giddiness (principal); R51.9 Headache, unspecified; R10.84 Generalized abdominal pain
CPT/HCPCS: 36415; 74177-TC; 76830-TC; 80053; 81003; 84703; 85025; 87086; 93005; 99285-25; Q9967

== ENCOUNTER 2021-08-15 20:34 | Emergency (ER) | payer OTHER ==
[2021-08-15 20:50] VITALS: BP 96/60; TEMP 99.9; BMI 24.6
[2021-08-15] MEDS ORDERED: diphenhydrAMINE HCL 25 MG CAPSULE (FP) PO ONE ×2 (21:07→21:08)
[2021-08-15] MEDS ORDERED: predniSONE 20 MG TABLET (UD) PO STA (21:07)
[2021-08-15] MEDS ORDERED: IBUPROFEN 600 MG TABLET (FP) PO ONE ×2 (21:07→21:08)
[2021-08-15] MEDS ORDERED: IBUPROFEN 400 MG TABLET (FP) PO ONE ×2 (21:09→21:10)
[2021-08-15] MEDS ORDERED: predniSONE 20 MG TABLET (UD) ONE (21:09)
[2021-08-15] MEDS ORDERED: predniSONE 10 MG TABLET (UD) ONE (21:09)
[2021-08-15 22:17] VITALS: PULSE 88
[2021-08-17 21:09] LABS: SARS-CoV-2 NAA Not Detected (Not Detected)
== END 2021-08-15 22:28 | disposition home or self-care (01) ==
LOC: FER 20:34
DX: R21 Rash and other nonspecific skin eruption (principal); J02.9 Acute pharyngitis, unspecified
CPT/HCPCS: 99283-25; C9803-CS; U0003; U0005

== ENCOUNTER 2022-01-28 15:08 | Emergency (ER) | payer OTHER ==
[2022-01-28 15:18] VITALS: TEMP 98.1; BMI 25.2
[2022-01-28] MEDS ORDERED: SODIUM CHLORIDE 0.9% 500 ML INFUS.BAG IV ONE (16:55)
[2022-01-28 17:24] LABS: HEMATOCRIT 38.2 % (32.4-45.2); HEMOGLOBIN 13.4 GM/dL (10.7-15.3); MCH 28.6 pg (25.7-33.7); MCHC 35.1 g/dl (32.0-36.0); MEAN CELL VOLUME 81.3 fl (80-96); MEAN PLT VOLUME 7.7 fl (7.5-11.1); PLATELET COUNT 215 10^3/uL (134-434); RDW 14.8 % (11.6-15.6); WHITE BLOOD COUNT 6.7 K/mm3 (4.0-10.0)
[2022-01-28 17:25] LABS: PH,URINE 6.5 (5.0-8.0); URINE APPEARANCE CLEAR; URINE BILIRUBIN NEGATIVE (NEGATIVE); URINE COLOR YELLOW; URINE GLUCOSE (UA) NEGATIVE (NEGATIVE); URINE KETONE TRACE (NEGATIVE); URINE LEUK ESTERASE NEGATIVE (NEGATIVE); URINE NITRITE NEGATIVE (NEGATIVE); URINE PROTEIN NEGATIVE (NEGATIVE); URINE UROBILINOGEN 0.2 mg/dL (0.2-1.0)
[2022-01-28 17:39] LABS: CALCIUM 8.7 mg/dL (8.5-10.1)
[2022-01-28 17:40] LABS: ALBUMIN 3.8 g/dl (3.4-5.0); BLOOD UREA NITROGEN 8.8 mg/dL (7-18)
[2022-01-28 17:43] LABS: CREATININE 0.6 mg/dL (0.55-1.3)
[2022-01-28 17:44] LABS: BILIRUBIN,TOTAL 0.3 mg/dL (0.2-1); TOT PROT 7.4 g/dl (6.4-8.2)
[2022-01-28 20:01] VITALS: BP 100/73; PULSE 64; RESP 16
[2022-01-28] MEDS ORDERED: KETOROLAC TROMETHAMINE 30 MG/1 ML VIAL ONE (20:55)
[2022-01-28] MEDS ORDERED: KETOROLAC TROMETHAMINE 30 MG/1 ML VIAL IVPUSH ONE (20:55)
== END 2022-01-28 22:10 | disposition home or self-care (01) ==
LOC: JER 15:08
PROC: 3E033GC Introduction of Other Therapeutic Substance into Peripheral Vein, Percutaneous Approach (ICD-10-PCS; principal; 2022-01-28)
DX: N83.201 Unspecified ovarian cyst, right side (principal)
CPT/HCPCS: 36415; 74176-TC; 76830-TC; 76856-TC; 80053; 81003; 84703; 85027; 87086; 99285-25

== ENCOUNTER 2022-08-24 14:28 | Emergency (ER) | payer OTHER ==
[2022-08-24] MEDS ORDERED: NAPROXEN 500 MG TABLET PO ONE (14:45)
[2022-08-24] MEDS ORDERED: ACETAMINOPHEN 500 MG TABLET (FP) PO ONE (14:45)
[2022-08-24] MEDS ORDERED: NAPROXEN 500 MG TABLET ONE (14:49)
[2022-08-24] MEDS ORDERED: ACETAMINOPHEN 500 MG TABLET (FP) ONE (14:49)
[2022-08-24 14:57] VITALS: BP 96/60; PULSE 73; RESP 15; TEMP 98.9; BMI 24.4
== END 2022-08-24 15:42 | disposition home or self-care (01) ==
LOC: FER 14:28
DX: R51.9 Headache, unspecified (principal); Z20.822 Contact with and (suspected) exposure to COVID-19
CPT/HCPCS: 0241U-QW; 99283-25

== ENCOUNTER 2023-02-02 17:38 | Emergency (ER) | payer OTHER ==
[2023-02-02 18:00] VITALS: TEMP 98.3; BMI 24.2
[2023-02-02] MEDS ORDERED: ACETAMINOPHEN 500 MG TABLET (FP) PO ONE (19:18)
[2023-02-02] MEDS ORDERED: IBUPROFEN 600 MG TABLET (FP) PO ONE ×2 (19:19→19:39)
[2023-02-02] MEDS ORDERED: ACETAMINOPHEN 500 MG TABLET (FP) ONE (19:40)
[2023-02-02 20:51] VITALS: BP 100/64; PULSE 70; RESP 12
== END 2023-02-02 20:51 | disposition home or self-care (01) ==
LOC: JER 17:38
DX: M54.6 Pain in thoracic spine (principal); M54.50 Low back pain, unspecified; G89.29 Other chronic pain
CPT/HCPCS: 72070-TC-FY; 72100-TC-FY; 99283-25

== ENCOUNTER 2023-05-11 14:30 | Day surgery (SDC) | payer OTHER ==
[2023-05-11 15:04] VITALS: BMI 26.2
[2023-05-11] MEDS ORDERED: ACETAMINOPHEN 1000 MG/100 ML BAG IVPB ONE ×2 (15:55→22:32)
[2023-05-11] MEDS ORDERED: ONDANSETRON 4 MG/2 ML VIAL IVPUSH ONE (15:55)
[2023-05-11 16:00] LABS: URINE APPEARANCE CLEAR; URINE BILIRUBIN NEGATIVE (NEGATIVE); URINE COLOR YELLOW; URINE GLUCOSE (UA) NEGATIVE (NEGATIVE); URINE KETONE 1+ (NEGATIVE); URINE LEUK ESTERASE NEGATIVE (NEGATIVE); URINE NITRITE NEGATIVE (NEGATIVE); URINE PROTEIN NEGATIVE (NEGATIVE); URINE UROBILINOGEN 0.2 mg/dL (0.2-1.0)
[2023-05-11] MEDS ORDERED: SODIUM CHLORIDE 0.9% 500 ML INFUS.BAG IV ONE (16:22)
[2023-05-11] MEDS ORDERED: ACETAMINOPHEN INJECTION 100 ML IVPB ONE ×2 (16:35→22:37)
[2023-05-11] MEDS ORDERED: ONDANSETRON 4 MG/2 ML VIAL ONE (16:36)
[2023-05-11 16:40] LABS: BASO % 0.3 % (0-2.0); EOS % 0.7 % (0-4.5); HEMATOCRIT 35.8 % (32.4-45.2); LYMPH % 18.2 % (8-40); MCH 26.6 pg (25.7-33.7); MCHC 33.4 g/dl (32.0-36.0); MEAN CELL VOLUME 79.7 fl (80-96); MEAN PLT VOLUME 7.6 fl (7.5-11.1); MONO % 4.1 % (3.8-10.2); NEUT % 76.7 % (42.8-82.8); PLATELET COUNT 227 10^3/uL (134-434); RBC 4.49 M/mm3 (3.60-5.2); RDW 14.7 % (11.6-15.6); WHITE BLOOD COUNT 8.9 K/mm3 (4.0-10.0)
[2023-05-11 16:57] LABS: POTASSIUM 4.3 mmol/L (3.5-5.1)
[2023-05-11 17:00] LABS: ALBUMIN 3.8 g/dl (3.4-5.0); BLOOD UREA NITROGEN 11.4 mg/dL (7-18); CALCIUM 8.7 mg/dL (8.5-10.1)
[2023-05-11 17:03] LABS: CREATININE 0.7 mg/dL (0.55-1.3)
[2023-05-11 17:05] LABS: BILIRUBIN,TOTAL 0.2 mg/dL (0.2-1)
[2023-05-11 20:12] LABS: BASO % 0.6 % (0-2.0); EOS % 0.8 % (0-4.5); HEMATOCRIT 30.4 % (32.4-45.2); HEMOGLOBIN 10.4 GM/dL (10.7-15.3); LYMPH % 25.5 % (8-40); MCHC 34.1 g/dl (32.0-36.0); MEAN CELL VOLUME 79.1 fl (80-96); MEAN PLT VOLUME 7.7 fl (7.5-11.1); MONO % 4.2 % (3.8-10.2); NEUT % 68.9 % (42.8-82.8); PLATELET COUNT 194 10^3/uL (134-434); RBC 3.85 M/mm3 (3.60-5.2); RDW 14.5 % (11.6-15.6)
[2023-05-11 22:39] LABS: BASO % 0.5 % (0-2.0); EOS % 1.5 % (0-4.5); HEMATOCRIT 29.9 % (32.4-45.2); LYMPH % 30.4 % (8-40); MCH 26.4 pg (25.7-33.7); MCHC 33.4 g/dl (32.0-36.0); MEAN CELL VOLUME 79.3 fl (80-96); MEAN PLT VOLUME 7.7 fl (7.5-11.1); MONO % 5.3 % (3.8-10.2); NEUT % 62.3 % (42.8-82.8); PLATELET COUNT 185 10^3/uL (134-434); RBC 3.77 M/mm3 (3.60-5.2); RDW 14.7 % (11.6-15.6); WHITE BLOOD COUNT 6.9 K/mm3 (4.0-10.0)
[2023-05-11 22:49] LABS: INR 1.15 (0.83-1.09); PROTHROMBIN TIME (PATIENT) 13.3 SEC (9.7-13.0)
[2023-05-11] MEDS ORDERED: ACETAMINOPHEN 1000 MG/100 ML BAG IVPB PRN (23:17)
[2023-05-11] MEDS ORDERED: IBUPROFEN 600 MG TABLET (FP) PO PRN (23:18)
[2023-05-11] MEDS ORDERED: ACETAMINOPHEN 325 MG TABLET (FP) PO PRN (23:18)
[2023-05-12] MEDS: DEXTROSE 5%-LACTATED RINGERS 1,000 ML IV SCH ×2 (00:37→06:19)
[2023-05-12 08:39] LABS: BASO % 0.5 % (0-2.0); EOS % 1.8 % (0-4.5); HEMATOCRIT 28.7 % (32.4-45.2); HEMOGLOBIN 9.8 GM/dL (10.7-15.3); MCH 27.1 pg (25.7-33.7); MCHC 34.3 g/dl (32.0-36.0); MEAN CELL VOLUME 79.1 fl (80-96); MONO % 7.2 % (3.8-10.2); NEUT % 59.5 % (42.8-82.8); PLATELET COUNT 177 10^3/uL (134-434); RBC 3.63 M/mm3 (3.60-5.2); RDW 14.6 % (11.6-15.6); WHITE BLOOD COUNT 4.5 K/mm3 (4.0-10.0)
[2023-05-12] MEDS ORDERED: oxyCODONE HCL 5 MG TABLET PO PRN ×2 (11:18)
[2023-05-12 13:41] VITALS: BP 91/59; PULSE 70; RESP 18; TEMP 98.3
== END 2023-05-12 14:15 | disposition home or self-care (01) ==
LOC: JER 14:30 → JERBED 21:57 → UNDOADMIN 21:57 → JASUSAT 05-12 00:09 → J3W 05-12 00:32 → JASUSAT 05-12 14:15
PROVIDERS: ATTEND Obstetrics & Gynecology
DX: N83.321 Acquired atrophy of right fallopian tube (principal); R18.8 Other ascites
CPT/HCPCS: 0241U-QW; 36415; 71046-TC-FY; 74176-TC; 76830-TC; 80053; 81003; 83690; 84484; 84703; 85025; 85610; 86850; 86870; 86880; 86900; 86901; 86902; 87491; 87591; 87661; 93005; 93010; 99285-25; J0131

== ENCOUNTER 2023-08-07 04:11 | Day surgery (SDC) | payer OTHER ==
[2023-08-01 11:05] VITALS: BMI 25.2
[2023-08-07] MEDS ORDERED: METHYLENE BLUE 50 MG/10 ML AMPUL ONE (07:13)
[2023-08-07] MEDS ORDERED: MIDAZOLAM HCL 2 MG/2 ML SINGLE DOSE VIAL ONE (07:59)
[2023-08-07] MEDS ORDERED: PROPOFOL 40 ML ONE (07:59)
[2023-08-07] MEDS: ceFAZolin SODIUM 1 GM VIAL IVPB ONE (08:30)
[2023-08-07] MEDS ORDERED: LIDOCAINE 1%/EPI 1:100000 (20 ML MULTI DOSE VIAL) ONE ×2 (08:32→08:34)
[2023-08-07] MEDS: LIDOCAINE 1%/EPI 1:100000 (20 ML MULTI DOSE VIAL) IJ ONE (08:48)
[2023-08-07] MEDS ORDERED: SUGAMMADEX SODIUM 200 MG/2 ML VIAL ONE (08:58)
[2023-08-07] MEDS ORDERED: KETOROLAC TROMETHAMINE 30 MG/1 ML VIAL ONE (08:59)
[2023-08-07] MEDS ORDERED: PROMETHAZINE HCL 25 MG/1 ML VIAL IVPB PRN (09:21)
[2023-08-07] MEDS ORDERED: oxyCODONE HCL 5 MG TABLET PO PRN (09:21)
[2023-08-07] MEDS ORDERED: IBUPROFEN 800 MG/8 ML IJ IVPB PRN (09:26)
[2023-08-07] MEDS: LACTATED RINGERS SOLUTION 1,000 ML IV SCH (09:45)
[2023-08-07] MEDS: LACTATED RINGERS SOLUTION 1000 ML INFUS.BAG IV SCH (10:48)
[2023-08-07] MEDS ORDERED: ONDANSETRON 4 MG/2 ML VIAL ONE (10:49)
[2023-08-07] MEDS: ONDANSETRON 4 MG/2 ML VIAL IVPUSH PRN (10:49)
[2023-08-07 12:26] VITALS: RESP 18
[2023-08-07 15:13] VITALS: BP 90/56; PULSE 68; TEMP 97.8
== END 2023-08-07 15:51 | disposition home or self-care (01) ==
LOC: JASU-SURG 04:11
PROVIDERS: ATTEND Specialist
PROC: 0WJG4ZZ Inspection of Peritoneal Cavity, Percutaneous Endoscopic Approach (ICD-10-PCS; principal; 2023-08-07 08:00)
DX: R10.2 Pelvic and perineal pain (principal); K66.0 Peritoneal adhesions (postprocedural) (postinfection); N83.201 Unspecified ovarian cyst, right side
CPT/HCPCS: 81025; 86850; 86870; 86880; 86900; 86901; 86902; 94760; Q9968

== ENCOUNTER 2023-08-07 18:23 | Emergency (ER) | payer OTHER ==
[2023-08-07 18:56] VITALS: RESP 18; TEMP 98.8; BMI 25.0
[2023-08-07] MEDS ORDERED: SILVER NITRATE 75% APPLIC STCK 1 PKT EACH ONE (20:20)
[2023-08-07 20:45] VITALS: BP 106/66; PULSE 78
== END 2023-08-07 20:52 | disposition home or self-care (01) ==
LOC: JER 18:23
DX: L76.22 Postprocedural hemorrhage of skin and subcutaneous tissue following other procedure (principal)
CPT/HCPCS: 99283-25

== ENCOUNTER 2023-09-29 14:02 | Emergency (ER) | payer OTHER ==
[2023-09-29 14:08] VITALS: PULSE 87; BMI 24.8
[2023-09-29 16:35] LABS: BASO % 0.6 % (0-2.0); EOS % 0.8 % (0-4.5); HEMATOCRIT 32.3 % (32.4-45.2); HEMOGLOBIN 10.7 GM/dL (10.7-15.3); LYMPH % 17.1 % (8-40); MCH 25.6 pg (25.7-33.7); MCHC 33.3 g/dl (32.0-36.0); MEAN CELL VOLUME 76.9 fl (80-96); MEAN PLT VOLUME 7.5 fl (7.5-11.1); MONO % 4.9 % (3.8-10.2); NEUT % 76.6 % (42.8-82.8); PLATELET COUNT 221 10^3/uL (134-434); RDW 15.3 % (11.6-15.6); WHITE BLOOD COUNT 8.7 K/mm3 (4.0-10.0)
[2023-09-29 16:47] LABS: CHLORIDE 108 mmol/L (98-107); POTASSIUM 3.9 mmol/L (3.5-5.1); SODIUM 137 mmol/L (136-145)
[2023-09-29 16:49] LABS: CALCIUM 8.6 mg/dL (8.5-10.1)
[2023-09-29 16:50] LABS: ALBUMIN 3.6 g/dl (3.4-5.0); ANION GAP 1 mmol/L (4-13); CO2 28 mmol/L (21-32); GLUCOSE,RANDOM 81 mg/dL (74-106)
[2023-09-29 16:53] LABS: CREATININE 0.6 mg/dL (0.55-1.3); SGOT/AST 14 U/L (15-37); SGPT/ALT 32 U/L (13-61)
[2023-09-29 16:54] LABS: BILIRUBIN,TOTAL 0.4 mg/dL (0.2-1); TOT PROT 6.8 g/dl (6.4-8.2)
[2023-09-29 16:56] LABS: ALK PHOS 109 U/L (45-117)
[2023-09-29] MEDS ORDERED: ONDANSETRON 4 MG/2 ML VIAL ONE (17:29)
[2023-09-29] MEDS ORDERED: KETOROLAC TROMETHAMINE 30 MG/1 ML VIAL ONE (17:29)
[2023-09-29 17:33] LABS: THROAT:GRP A STREP DETECTED (NOTDETECTED)
[2023-09-29] MEDS ORDERED: DEXAMETHASONE SOD PHOSPHATE 10 MG/1 ML VIAL ONE (17:40)
[2023-09-29] MEDS ORDERED: PENICILLIN G BENZATHINE 1,200,000 UNIT/2 ML PFS IM ONE (17:40)
[2023-09-29] MEDS: PENICILLIN G BENZATHINE 1,200,000 UNIT/2 ML PFS IM ONE (17:51)
[2023-09-29] MEDS: SODIUM CHLORIDE 0.9% 500 ML INFUS.BAG IV ONE (17:55)
[2023-09-29] MEDS: KETOROLAC TROMETHAMINE 30 MG/1 ML VIAL IVPUSH ONE (17:55)
[2023-09-29] MEDS: ALBUTEROL SO4 2.5/IPRATROPIUM 0.5 INH SOL 3 ML VIAL.NEB. NEB ONE (17:56)
[2023-09-29] MEDS: ONDANSETRON 4 MG/2 ML VIAL IVPUSH ONE (17:56)
[2023-09-29 17:59] VITALS: RESP 20; TEMP 98.2
[2023-09-29] MEDS: DEXAMETHASONE SOD PHOSPHATE 10 MG/1 ML VIAL IVPUSH ONE (18:00)
[2023-09-29 18:38] VITALS: BP 98/54
== END 2023-09-29 18:59 | disposition home or self-care (01) ==
LOC: JER 14:02
PROC: 3E0303Z Introduction of Anti-inflammatory into Peripheral Vein, Open Approach (ICD-10-PCS; principal; 2023-09-29)
PROC: 3E030GC Introduction of Other Therapeutic Substance into Peripheral Vein, Open Approach (ICD-10-PCS; 2023-09-29)
PROC: 3E030GC Introduction of Other Therapeutic Substance into Peripheral Vein, Open Approach (ICD-10-PCS; 2023-09-29)
PROC: 3E023GC Introduction of Other Therapeutic Substance into Muscle, Percutaneous Approach (ICD-10-PCS; 2023-09-29)
PROC: 3E0F7GC Introduction of Other Therapeutic Substance into Respiratory Tract, Via Natural or Artificial Opening (ICD-10-PCS; 2023-09-29)
DX: J02.0 Streptococcal pharyngitis (principal); R05.1 Acute cough; R53.83 Other fatigue; R07.2 Precordial pain; G89.29 Other chronic pain; R42 Dizziness and giddiness; M54.9 Dorsalgia, unspecified; R53.1 Weakness; R11.0 Nausea; H92.09 Otalgia, unspecified ear; Z20.822 Contact with and (suspected) exposure to COVID-19
CPT/HCPCS: 0241U-QW; 36415; 71046-TC-FY; 80053; 82550; 84484; 85025; 87651; 93005; 93010; 99285-25; J1100

== ENCOUNTER 2023-10-16 08:00 | Inpatient (IN) | payer OTHER ==
[2023-10-15 13:47] VITALS: BMI 25.2
[~2023-10-16 08:00] MED LIST: CEFAZOLIN SODIUM 2 GM in DEXTROSE 5%-WATER 100 ML IVPB ONE
[2023-11-20] MEDS ORDERED: ONDANSETRON 4 MG/2 ML VIAL IVPUSH PRN ×3 (08:16→12:35)
[2023-11-20] MEDS ORDERED: oxyCODONE HCL 5 MG TABLET PO PRN ×3 (08:16→12:35)
[2023-11-20] MEDS ORDERED: HYDROmorphone HCl 2 MG/ML VIAL ONE (09:00)
[2023-11-20] MEDS ORDERED: MIDAZOLAM HCL 2 MG/2 ML SINGLE DOSE VIAL ONE (09:00)
[2023-11-20] MEDS ORDERED: PROPOFOL 20 ML ONE (09:00)
[2023-11-20] MEDS ORDERED: ceFAZolin SODIUM 1 GM VIAL ONE ×2 (09:00→09:04)
[2023-11-20] MEDS ORDERED: DEXAMETHASONE SOD PHOSPHATE 4 MG/1 ML VIAL ONE (09:00)
[2023-11-20] MEDS ORDERED: BUPIVACAINE LIPOSOME/PF (EXPAREL) 266 MG/20 ML VIAL ONE (09:22)
[2023-11-20] MEDS ORDERED: ROPIVACAINE HCL 0.5% 30ML VIAL ONE (09:22)
[2023-11-20] MEDS: ceFAZolin SODIUM 1 GM VIAL IVPB ONE (10:05)
[2023-11-20] MEDS ORDERED: KETOROLAC TROMETHAMINE 30 MG/1 ML VIAL ONE (10:48)
[2023-11-20] MEDS ORDERED: ONDANSETRON 4 MG/2 ML VIAL ONE (10:48)
[2023-11-20] MEDS ORDERED: NEOSTIGMINE METHYLSULFATE 0.5 MG/1 ML - 10 ML MDV ONE (11:35)
[2023-11-20] MEDS ORDERED: GLYCOPYRROLATE 0.2 MG/1 ML VIAL ONE (11:35)
[2023-11-20] MEDS ORDERED: LIDOCAINE HCL/PF 2% SDV 5ML VIAL ONE (11:53)
[2023-11-20] MEDS ORDERED: SIMETHICONE 80 MG TAB.CHEW (FP) PO PRN (12:24)
[2023-11-20] MEDS ORDERED: BISACODYL 5 MG TABLET.DR (FP) PO PRN ×2 (12:24→12:35)
[2023-11-20] MEDS: HYDROmorphone *PCA* 10MG/50ML DISP.SYRIN PCA SCH (12:32)
[2023-11-20] MEDS ORDERED: IBUPROFEN 800 MG/8 ML IJ IVPB PRN (12:35)
[2023-11-20] MEDS ORDERED: DOCUSATE SODIUM 100 MG CAPSULE (FP) PO PRN (12:35)
[2023-11-20] MEDS ORDERED: ACETAMINOPHEN 325 MG TABLET (FP) PO PRN (12:35)
[2023-11-20] MEDS ORDERED: PROMETHAZINE HCL 25 MG/1 ML VIAL ONE (13:08)
[2023-11-20] MEDS: PROMETHAZINE HCL 25 MG/1 ML VIAL IVPB PRN (13:10)
[2023-11-20] MEDS: LACTATED RINGERS SOLUTION 1,000 ML IV SCH (13:28)
[2023-11-20] MEDS: ACETAMINOPHEN 1000 MG/100 ML BAG IVPB SCH (17:24)
[2023-11-20] MEDS: CEFAZOLIN SODIUM 2 GM in DEXTROSE 5%-WATER 100 ML IVPB SCH (17:25)
[2023-11-20] MEDS: IBUPROFEN 800 MG/8 ML IJ IVPB SCH (17:26)
[2023-11-20] MEDS ORDERED: CEFAZOLIN 1 GM in DEXTROSE 5%-WATER - 50 ML IVPB SCH (18:00)
[2023-11-21] MEDS: ONDANSETRON 4 MG/2 ML VIAL IVPUSH PRN (01:20)
[2023-11-21 05:49] LABS: HEMATOCRIT 27.4 % (32.4-45.2); HEMOGLOBIN 9.4 GM/dL (10.7-15.3); MCHC 34.3 g/dl (32.0-36.0); MEAN CELL VOLUME 75.8 fl (80-96); MEAN PLT VOLUME 7.4 fl (7.5-11.1); PLATELET COUNT 182 10^3/uL (134-434); RBC 3.62 M/mm3 (3.60-5.2); WHITE BLOOD COUNT 8.5 K/mm3 (4.0-10.0)
[2023-11-21] MEDS: DOCUSATE SODIUM 100 MG CAPSULE (FP) PO PRN (06:26)
[2023-11-21] MEDS: SIMETHICONE 80 MG TAB.CHEW (FP) PO PRN (06:26)
[2023-11-21] MEDS ORDERED: IBUPROFEN 600 MG TABLET (FP) PO PRN (12:36)
[2023-11-21] MEDS: BISACODYL 10 MG SUPP.RECT PR PRN (18:25)
[2023-11-21] MEDS: IBUPROFEN 600 MG TABLET (FP) PO PRN (18:34)
[2023-11-21] MEDS: ACETAMINOPHEN 500 MG TABLET (FP) PO PRN (20:38)
[2023-11-22 10:00] VITALS: BP 102/67; PULSE 92; RESP 17; TEMP 97.8
== END 2023-11-22 11:10 | disposition home or self-care (01) | DRG 951 ==
LOC: J2C 11-20 04:09 → J3W 11-20 15:11
PROVIDERS: ADMIT Specialist; ATTEND Specialist
PROC: 0DBU0ZZ Excision of Omentum, Open Approach (ICD-10-PCS; 2023-11-20)
PROC: 0DNW0ZZ Release Peritoneum, Open Approach (ICD-10-PCS; 2023-11-20)
PROC: 0UT90ZZ Resection of Uterus, Open Approach (ICD-10-PCS; principal; 2023-11-20 10:00)
PROC: 0UT70ZZ Resection of Bilateral Fallopian Tubes, Open Approach (ICD-10-PCS; 2023-11-20 10:00)
DX: L91.0 Hypertrophic scar (principal); L90.5 Scar conditions and fibrosis of skin; N73.6 Female pelvic peritoneal adhesions (postinfective)
CPT/HCPCS: 36415; 81025; 85027; 88304-TC; 88305-TC; 88307-TC; 94760; J0131

== ENCOUNTER 2024-01-23 14:11 | Emergency (ER) | payer OTHER ==
[2024-01-23 14:33] VITALS: BP 97/65; PULSE 96; RESP 20; TEMP 98.4; BMI 24.8
[2024-01-23 15:35] LABS: EPI CELLS >36 /uL (0-25.1); HYALINE CASTS 7 /uL (0-3.1); URINE APPEARANCE TURBID; URINE BACTERIA >9,000 /uL (0-1359); URINE BILIRUBIN NEGATIVE (NEGATIVE); URINE COLOR YELLOW; URINE GLUCOSE (UA) NEGATIVE (NEGATIVE); URINE KETONE TRACE (NEGATIVE); URINE LEUK ESTERASE 3+ (NEGATIVE); URINE NITRITE POSITIVE (NEGATIVE); URINE PROTEIN 2+ (NEGATIVE); URINE RBC 474 /uL (0-23.9); URINE WBC 1143 /uL (0-25.8)
== END 2024-01-23 16:03 | disposition home or self-care (01) ==
LOC: JER 14:11
DX: N39.0 Urinary tract infection, site not specified (principal); R30.0 Dysuria; R35.89 Other polyuria; R35.0 Frequency of micturition
CPT/HCPCS: 81003; 87086; 87186; 99283-25

== ENCOUNTER 2024-07-16 07:19 | Day surgery (SDC) | payer OTHER ==
[2024-07-14 17:08] VITALS: BMI 24.8
[2024-07-16] MEDS: LIDOCAINE HCL 1% PRESERVATIVE FREE - 30ML VIAL IJ ONE (15:58)
[2024-07-16] MEDS: BUPIVACAINE 0.75% IN DEXTROSE/PF 2ML AMPULE NR ONE (15:59)
[2024-07-16 16:39] VITALS: BP 93/58; PULSE 69; RESP 16; TEMP 97.8
[2024-07-16] MEDS ORDERED: ACETAMINOPHEN 500 MG TABLET (FP) PO PRN (17:00)
== END 2024-07-16 17:30 | disposition home or self-care (01) ==
LOC: JASU-SURG 07:19
PROVIDERS: ATTEND Pain Medicine Pain Medicine
PROC: 3E0T3BZ Introduction of Anesthetic Agent into Peripheral Nerves and Plexi, Percutaneous Approach (ICD-10-PCS; principal; 2024-07-16 15:15)
DX: M47.816 Spondylosis without myelopathy or radiculopathy, lumbar region (principal)
CPT/HCPCS: 76000-TC-FY; 81025